=== PATIENT | female | born 1955 ===

== ENCOUNTER 2022-11-14 17:10 | Inpatient (IN) ==
[2022-11-14] MEDS ORDERED: Propofol 10 mg/ml 100 ML BTL 1,000 MG/100 ML BTL ONE (18:24)
[2022-11-14] MEDS: Propofol 10 mg/ml 100 ML BTL 1,000 MG/100 ML BTL IV SCH (19:55)
[2022-11-14 20:57] LABS: PCO2 Arterial 35 mmHg (35-45); PO2 Arterial 64 mmHg (80-100)
[2022-11-14] MEDS ORDERED: Norepinephrine IV 4 MG in NS 0.9% 250 ml 246 ML IV SCH (21:00)
[2022-11-14 21:17] LABS: Hematocrit 34 % (35-47); Hemoglobin 11.4 g/dL (12.0-16.0); Mean Corpuscular HGB Conc 34 g/dL (31-36); Mean Corpuscular Hemoglobin 33 pg (27-31); Mean Corpuscular Volume 98 fL (80-97); Mean Platelet Volume 7.8 fL (7.4-10.4); Platelet Count 294 10^3/uL (150-450); Red Blood Count 3.47 10^6 /uL (3.70-4.87); Red Cell Distribution Width 14 % (10-15); White Blood Count 17.8 10^3/uL (3.5-10.8)
[2022-11-14 21:35] LABS: INR 1.6 (0.88-1.18)
[2022-11-14] MEDS ORDERED: Piperacillin/Tazobac ADVAN 3.375 GM in NS 0.9% 100 ml BAG 100 ML IV ONE (21:38)
[2022-11-14 21:48] LABS: Albumin 2.3 g/dL (3.2-5.2); Calcium 7.3 mg/dL (8.6-10.3); Creatinine, Serum 0.36 mg/dL (0.51-0.95); Globulin 2.4 g/dL (2-4); Magnesium 1.5 mg/dL (1.9-2.7); Phosphorus 1.6 mg/dL (2.5-5.0); Potassium 4.2 mmol/L (3.5-5.0); Total Bilirubin 0.4 mg/dL (0.2-1.0); Total Protein 4.7 g/dL (6.4-8.9); eGFR CKD-EPI 110.5 (>60)
[2022-11-14] MEDS ORDERED: Sodium Phosphate IV 15 MMOL in NS 0.9% 250 ml 250 ML IV ONE (21:54)
[2022-11-14] MEDS ORDERED: Magnesium Sulf 4 GM/100 ML IV 4,000 MG/100 ML BAG IVPB ONE (21:55)
[2022-11-14 21:57] LABS: ABS Lymphocytes 0.6 10^3/ul (1.0-4.8); ABS Monocytes 0.3 10^3/ul (0-0.8); ABS Neutrophils 16.8 10^3/ul (1.5-7.7); Eosinophil % 0.1 %; Lymphocyte % 3.6 %; Nucleated Red Blood Cells % 0.1
[2022-11-14] MEDS ORDERED: Zosyn per Pharmacy NOTE FOLLOW UP SCH (22:00)
[2022-11-14 22:33] LABS: Phenytoin 7.1 mcg/mL (10-20)
[2022-11-14] MEDS ORDERED: Vancomycin 1,250 MG in NS 0.9% 250 ml 250 ML IVPB ONE (23:00)
[2022-11-14] MEDS ORDERED: Vancomycin per Pharmacy 1 EA NOTE FOLLOW UP SCH (23:00)
[2022-11-15] MEDS: Chlorhexidine MOUTHWASH 0.12% 15 ML UDC SWISH SPIT SCH ×7 (00:05→21:22)
[2022-11-15 00:46] LABS: PCO2 Arterial 36 mmHg (35-45); PO2 Arterial 259 mmHg (80-100)
[2022-11-15] MEDS: methylPREDNISolone SOD SUCC 40 mg/ml 1 ml VIAL IV SCH ×4 (01:02→22:18)
[2022-11-15] MEDS: Enoxaparin 30 MG/0.3 ML SYR SUBCUT SCH ×2 (01:02→08:15)
[2022-11-15 02:06] LABS: Urine Appearance Cloudy; Urine Bilirubin Negative (Negative); Urine Blood 3+ (Negative); Urine Color Yellow; Urine Glucose Negative (Negative); Urine Ketones 1+ (Negative); Urine Nitrite Negative (Negative); Urine Protein 2+(100 mg/dL) (Negative); Urine Specific Gravity 1.033 (1.002-1.030); Urine Urobilinogen Negative (Negative)
[2022-11-15] MEDS ORDERED: Lorazepam PYXIS KEY PRN ×2 (02:11→23:21)
[2022-11-15] MEDS ORDERED: LORazepam 2 mg VIAL 1 ml IV PUSH ONE ×2 (02:11→23:21)
[2022-11-15 02:12] LABS: Urine Bacteria Absent (Absent); Urine Red Blood Cell 3+(>10/hpf) (Absent); Urine Squamous Epithelial Cell Present (Absent); Urine White Blood Cell 2+(11-20/hpf) (Absent)
[2022-11-15] MEDS ORDERED: LORazepam 2 mg VIAL 1 ml ONE ×2 (02:13→23:26)
[2022-11-15] MEDS ORDERED: Lorazepam PYXIS KEY ONE (02:13)
[2022-11-15] MEDS: Propofol 10 mg/ml 100 ML BTL 1,000 MG/100 ML BTL IV SCH ×4 (03:05→23:36)
[2022-11-15] MEDS: ZOSYN 3.375 GM Q8H per EXTENDED INFUSION IV SCH ×3 (04:17→20:27)
[2022-11-15 06:29] LABS: Hematocrit 35 % (35-47); Hemoglobin 11.5 g/dL (12.0-16.0); Mean Corpuscular HGB Conc 33 g/dL (31-36); Mean Corpuscular Hemoglobin 33 pg (27-31); Mean Corpuscular Volume 98 fL (80-97); Platelet Count 345 10^3/uL (150-450); Red Blood Count 3.54 10^6 /uL (3.70-4.87); Red Cell Distribution Width 14 % (10-15); White Blood Count 16.8 10^3/uL (3.5-10.8)
[2022-11-15 06:53] LABS: Calcium 7.5 mg/dL (8.6-10.3); Creatinine, Serum 0.41 mg/dL (0.51-0.95); Magnesium 2.9 mg/dL (1.9-2.7); Phosphorus 2.5 mg/dL (2.5-5.0); Potassium 3.9 mmol/L (3.5-5.0); eGFR CKD-EPI 107.1 (>60)
[2022-11-15] MEDS: Metoprolol Tartrate 5 mg VIAL 5 ml VIAL (1 mg/ml) IV PRN ×2 (06:58→22:49)
[2022-11-15 07:04] LABS: ABS Basophils 0.1 10^3/ul (0-0.2); ABS Eosinophils 0.1 10^3/ul (0-0.6); ABS Lymphocytes 0.4 10^3/ul (1.0-4.8); ABS Monocytes 0.4 10^3/ul (0-0.8); ABS Neutrophils 15.8 10^3/ul (1.5-7.7); Eosinophil % 0.3 %; Lymphocyte % 2.3 %
[2022-11-15] MEDS ORDERED: Furosemide 40 mg/4 ml IV VIAL IV SLOW PU ONE (07:05)
[2022-11-15] MEDS ORDERED: Potassium Chloride LIQUID 20 MEQ/15 ML LIQUID PO ONE (07:05)
[2022-11-15] MEDS: Pantoprazole VIAL 40 MG VIAL IV SCH (08:16)
[2022-11-15 08:47] LABS: PCO2 Arterial 34 mmHg (35-45); PO2 Arterial 77 mmHg (80-100)
[2022-11-15] MEDS ORDERED: Phenytoin 100 mg ER CAP PO SCH (09:00)
[2022-11-15 10:14] LABS: Urine Appearance Cloudy; Urine Bilirubin Negative (Negative); Urine Blood 3+ (Negative); Urine Color Straw; Urine Glucose Negative (Negative); Urine Ketones Negative (Negative); Urine Nitrite Negative (Negative); Urine Protein Negative (Negative); Urine Specific Gravity 1.011 (1.002-1.030); Urine Urobilinogen Negative (Negative)
[2022-11-15 10:22] LABS: Urine Bacteria Absent (Absent); Urine Red Blood Cell 3+(>10/hpf) (Absent); Urine Squamous Epithelial Cell Present (Absent); Urine White Blood Cell Trace(0-5/hpf) (Absent)
[2022-11-15] MEDS: Vancomycin 1,250 MG in NS 0.9% 250 ml 250 ML IVPB SCH (11:20)
[2022-11-15] MEDS ORDERED: Enoxaparin 40 MG/0.4 ML SYR SUBCUT ONE (12:30)
[2022-11-15 12:59] LABS: PCO2 Arterial 35 mmHg (35-45); PO2 Arterial 73 mmHg (80-100)
[2022-11-15 13:33] LABS: Calcium 7.4 mg/dL (8.6-10.3); Creatinine, Serum 0.48 mg/dL (0.51-0.95); Potassium 4.4 mmol/L (3.5-5.0); eGFR CKD-EPI 103.1 (>60)
[2022-11-15] MEDS ORDERED: fentaNYL 100 mcg/2 ml 50 MCG/ML VIAL IV SLOW PU ONE (13:36)
[2022-11-15] MEDS ORDERED: Furosemide 40 mg/4 ml IV VIAL IV ONE (14:37)
[2022-11-15] MEDS ORDERED: fentaNYL 100 mcg/2 ml 50 MCG/ML VIAL IV SLOW PU PRN (18:00)
[2022-11-15] MEDS: Enoxaparin 80 MG/0.8 ML SYR SUBCUT SCH (21:21)
[2022-11-15] MEDS: PHENobarbital LIQ 30 MG/7.5 ML UDC G TUBE SCH (21:22)
[2022-11-15] MEDS: fentaNYL 100 mcg/2 ml 50 MCG/ML VIAL IV SLOW PU PRN (23:45)
[2022-11-16] MEDS: Acetaminophen IV 1 GM/100ML 1,000 MG/100 ML BAG IV PRN ×2 (00:08→15:29)
[2022-11-16] MEDS ORDERED: Lactated Ringers 1000 ml BAG 500 ML IV ONE (00:50)
[2022-11-16] MEDS ORDERED: Norepinephrine IV 4 MG in NS 0.9% 250 ml 246 ML IV SCH (01:30)
[2022-11-16] MEDS: Vancomycin 1,250 MG in NS 0.9% 250 ml 250 ML IVPB SCH ×2 (01:33→13:15)
[2022-11-16] MEDS ORDERED: Norepinephrine 16MCG/ML BAGD5W 4,000 MCG/250 ML BAG IV SCH (02:00)
[2022-11-16] MEDS: Chlorhexidine MOUTHWASH 0.12% 15 ML UDC SWISH SPIT SCH ×3 (04:10→08:14)
[2022-11-16] MEDS: ZOSYN 3.375 GM Q8H per EXTENDED INFUSION IV SCH ×3 (04:13→20:21)
[2022-11-16 05:05] LABS: Red Blood Count 3.09 10^6 /uL (3.70-4.87)
[2022-11-16 05:08] LABS: Hematocrit 30 % (35-47); Hemoglobin 10.6 g/dL (12.0-16.0); Mean Corpuscular HGB Conc 35 g/dL (31-36); Mean Corpuscular Hemoglobin 35 pg (27-31); Mean Corpuscular Volume 99 fL (80-97); Mean Platelet Volume 7.9 fL (7.4-10.4); Platelet Count 368 10^3/uL (150-450); Red Cell Distribution Width 14 % (10-15); White Blood Count 16.6 10^3/uL (3.5-10.8)
[2022-11-16 05:37] LABS: CO2 Carbon Dioxide 31 mmol/L (22-32); Chloride 97 mmol/L (101-111); Magnesium 1.9 mg/dL (1.9-2.7); Sodium 132 mmol/L (135-145)
[2022-11-16 05:43] LABS: Blood Urea Nitrogen 14 mg/dL (6-24); Creatinine, Serum 0.47 mg/dL (0.51-0.95); Glucose 139 mg/dL (70-100); Phenytoin 6.4 mcg/mL (10-20); eGFR CKD-EPI 103.6 (>60)
[2022-11-16 05:44] LABS: Anion Gap 4 mmol/L (2-11)
[2022-11-16] MEDS: Propofol 10 mg/ml 100 ML BTL 1,000 MG/100 ML BTL IV SCH ×5 (06:01→21:39)
[2022-11-16 06:03] LABS: RBC Morphology Normal (Normal)
[2022-11-16 06:04] LABS: Anisocytosis 1+
[2022-11-16 06:05] LABS: ABS Basophils 0.1 10^3/ul (0-0.2); ABS Eosinophils 0.1 10^3/ul (0-0.6); ABS Lymphocytes 0.6 10^3/ul (1.0-4.8); ABS Monocytes 0.3 10^3/ul (0-0.8); ABS Neutrophils 15.8 10^3/ul (1.5-7.7); Eosinophil % 0.9 %; Lymphocyte % 3.4 %; Nucleated Red Blood Cells % 0.2
[2022-11-16 06:12] LABS: Potassium, Whole Blood 3.5 mmol/L (3.4-4.5)
[2022-11-16] MEDS: methylPREDNISolone SOD SUCC 40 mg/ml 1 ml VIAL IV SCH ×3 (06:40→22:51)
[2022-11-16] MEDS: KCL 20 MEQ/100 ML IVPREMIX 20 MEQ/100 ML BAG IV SCH ×2 (07:50→10:03)
[2022-11-16] MEDS: PHENobarbital LIQ 30 MG/7.5 ML UDC G TUBE SCH ×2 (08:02→20:21)
[2022-11-16] MEDS: Pantoprazole VIAL 40 MG VIAL IV SCH (08:02)
[2022-11-16] MEDS: Enoxaparin 80 MG/0.8 ML SYR SUBCUT SCH ×2 (08:02→20:25)
[2022-11-16] MEDS ORDERED: Phenytoin SUSP 100 MG/4 ML UDC (100 MG) PO SCH ×2 (09:00→21:00)
[2022-11-16] MEDS: fentaNYL 100 mcg/2 ml 50 MCG/ML VIAL IV SLOW PU PRN ×2 (10:36→14:27)
[2022-11-16] MEDS ORDERED: Vancomycin Trough Check NOTE FOLLOW UP ONE (11:30)
[2022-11-16] MEDS: Chlorhexidine MOUTHWASH 0.12% 15 ML UDC TOPICAL SCH ×3 (12:37→20:29)
[2022-11-16] MEDS: Bacitracin OINTMENT TUBE TOPICAL SCH ×2 (12:38→20:29)
[2022-11-16] MEDS ORDERED: Furosemide 40 mg/4 ml IV VIAL IV SLOW PU ONE (13:42)
[2022-11-16] MEDS: Phenytoin SUSP 100 MG/4 ML UDC (100 MG) PO SCH ×2 (13:56→20:21)
[2022-11-16] MEDS ORDERED: fentaNYL 100 mcg/2 ml 50 MCG/ML VIAL IV SLOW PU PRN (15:36)
[2022-11-16] MEDS ORDERED: Lorazepam PYXIS KEY PRN (17:48)
[2022-11-17] MEDS: Chlorhexidine MOUTHWASH 0.12% 15 ML UDC TOPICAL SCH ×6 (00:13→19:43)
[2022-11-17] MEDS: Propofol 10 mg/ml 100 ML BTL 1,000 MG/100 ML BTL IV SCH ×4 (02:08→22:19)
[2022-11-17] MEDS: ZOSYN 3.375 GM Q8H per EXTENDED INFUSION IV SCH ×3 (03:52→19:43)
[2022-11-17] MEDS: Norepinephrine 16MCG/ML BAGD5W 4,000 MCG/250 ML BAG IV SCH (04:57)
[2022-11-17 05:06] LABS: ABS Eosinophils 0.3 10^3/ul (0-0.6); ABS Lymphocytes 0.3 10^3/ul (1.0-4.8); ABS Monocytes 0.1 10^3/ul (0-0.8); ABS Neutrophils 14.3 10^3/ul (1.5-7.7); Eosinophil % 1.7 %; Hematocrit 30 % (35-47); Hemoglobin 9.9 g/dL (12.0-16.0); Lymphocyte % 1.7 %; Mean Corpuscular HGB Conc 33 g/dL (31-36); Mean Corpuscular Hemoglobin 33 pg (27-31); Mean Corpuscular Volume 99 fL (80-97); Mean Platelet Volume 7.8 fL (7.4-10.4); Platelet Count 281 10^3/uL (150-450); Red Blood Count 3.03 10^6 /uL (3.70-4.87); Red Cell Distribution Width 14 % (10-15)
[2022-11-17 05:54] LABS: Albumin 2.2 g/dL (3.2-5.2); Albumin/Globulin Ratio 0.8 (1-3); Calcium 7.4 mg/dL (8.6-10.3); Creatinine, Serum 0.41 mg/dL (0.51-0.95); Globulin 2.6 g/dL (2-4); Magnesium 1.9 mg/dL (1.9-2.7); Potassium 4.3 mmol/L (3.5-5.0); Total Bilirubin 0.4 mg/dL (0.2-1.0); Total Protein 4.8 g/dL (6.4-8.9); Vancomycin Random 18.3 mcg/mL; eGFR CKD-EPI 107.1 (>60)
[2022-11-17] MEDS ORDERED: Vancomycin Random Level NOTE FOLLOW UP ONE (06:00)
[2022-11-17] MEDS: methylPREDNISolone SOD SUCC 40 mg/ml 1 ml VIAL IV SCH ×3 (06:16→20:44)
[2022-11-17] MEDS: Phenytoin SUSP 100 MG/4 ML UDC (100 MG) PO SCH ×3 (07:59→22:18)
[2022-11-17] MEDS: Pantoprazole VIAL 40 MG VIAL IV SCH (08:00)
[2022-11-17] MEDS: PHENobarbital LIQ 30 MG/7.5 ML UDC G TUBE SCH ×2 (08:00→22:18)
[2022-11-17] MEDS: Enoxaparin 80 MG/0.8 ML SYR SUBCUT SCH ×2 (08:00→19:43)
[2022-11-17] MEDS: Bacitracin OINTMENT TUBE TOPICAL SCH ×3 (08:01→19:43)
[2022-11-17] MEDS: fentaNYL INFUSION 50 mcg/mL VL 2,500 MCG/50 ML VIAL IV SCH (08:33)
[2022-11-17] MEDS: Vancomycin 1,500 MG in NS 0.9% 250 ml 250 ML IVPB SCH (16:44)
[2022-11-18] MEDS: LORazepam 2 mg VIAL 1 ml IV PUSH PRN ×4 (01:06→23:19)
[2022-11-18] MEDS: Chlorhexidine MOUTHWASH 0.12% 15 ML UDC TOPICAL SCH ×7 (02:29→23:23)
[2022-11-18] MEDS: Propofol 10 mg/ml 100 ML BTL 1,000 MG/100 ML BTL IV SCH ×3 (03:28→19:33)
[2022-11-18 04:25] LABS: ABS Eosinophils 0.2 10^3/ul (0-0.6); ABS Lymphocytes 0.3 10^3/ul (1.0-4.8); ABS Monocytes 0.3 10^3/ul (0-0.8); ABS Neutrophils 17.7 10^3/ul (1.5-7.7); Hematocrit 28 % (35-47); Hemoglobin 9.2 g/dL (12.0-16.0); Lymphocyte % 1.7 %; Mean Corpuscular HGB Conc 33 g/dL (31-36); Mean Corpuscular Hemoglobin 32 pg (27-31); Mean Corpuscular Volume 99 fL (80-97); Mean Platelet Volume 7.9 fL (7.4-10.4); Platelet Count 277 10^3/uL (150-450); Red Blood Count 2.83 10^6 /uL (3.70-4.87); Red Cell Distribution Width 14 % (10-15); White Blood Count 18.5 10^3/uL (3.5-10.8)
[2022-11-18] MEDS: ZOSYN 3.375 GM Q8H per EXTENDED INFUSION IV SCH ×3 (04:52→20:35)
[2022-11-18] MEDS: methylPREDNISolone SOD SUCC 40 mg/ml 1 ml VIAL IV SCH ×3 (04:53→20:37)
[2022-11-18 05:12] LABS: Calcium 7.6 mg/dL (8.6-10.3); Creatinine, Serum 0.42 mg/dL (0.51-0.95); Phenytoin 8.1 mcg/mL (10-20); Potassium 4.4 mmol/L (3.5-5.0); eGFR CKD-EPI 106.5 (>60)
[2022-11-18] MEDS ORDERED: Furosemide 40 mg/4 ml IV VIAL IV SLOW PU ONE (06:48)
[2022-11-18] MEDS: Enoxaparin 80 MG/0.8 ML SYR SUBCUT SCH ×2 (08:49→20:36)
[2022-11-18] MEDS: Bacitracin OINTMENT TUBE TOPICAL SCH ×3 (08:49→20:36)
[2022-11-18] MEDS: Pantoprazole VIAL 40 MG VIAL IV SCH (08:49)
[2022-11-18] MEDS: PHENobarbital LIQ 30 MG/7.5 ML UDC G TUBE SCH ×2 (09:50→20:35)
[2022-11-18] MEDS: Phenytoin SUSP 100 MG/4 ML UDC (100 MG) PO SCH ×3 (09:50→20:36)
[2022-11-18] MEDS ORDERED: Acetylcysteine INHALATION SOL 200 MG/ML NEB.SOLN 10 ML INH ONE (11:51)
[2022-11-18] MEDS ORDERED: Acetylcysteine ORAL SOL 200 mg/ml 30 ml VIAL ONE (11:56)
[2022-11-18] MEDS ORDERED: Albuterol/Ipratropium NEB.SOL (2.5/0.5 MG) 3 ML NEB.SOLN INH ONE (12:56)
[2022-11-18] MEDS ORDERED: Albuterol/Ipratropium NEB.SOL (2.5/0.5 MG) 3 ML NEB.SOLN ONE (13:15)
[2022-11-18] MEDS ORDERED: Albuterol/Ipratropium NEB.SOL (2.5/0.5 MG) 3 ML NEB.SOLN INH PRN (14:07)
[2022-11-18] MEDS: Vancomycin 1,500 MG in NS 0.9% 250 ml 250 ML IVPB SCH (16:48)
[2022-11-18] MEDS: fentaNYL INFUSION 50 mcg/mL VL 2,500 MCG/50 ML VIAL IV SCH (19:12)
[2022-11-19] MEDS: Propofol 10 mg/ml 100 ML BTL 1,000 MG/100 ML BTL IV SCH ×6 (00:34→17:53)
[2022-11-19] MEDS: Acetaminophen IV 1 GM/100ML 1,000 MG/100 ML BAG IV PRN ×2 (00:34→16:45)
[2022-11-19] MEDS: Norepinephrine 16MCG/ML BAGD5W 4,000 MCG/250 ML BAG IV SCH ×2 (02:10→22:31)
[2022-11-19] MEDS: Chlorhexidine MOUTHWASH 0.12% 15 ML UDC TOPICAL SCH ×5 (03:25→21:39)
[2022-11-19] MEDS: ZOSYN 3.375 GM Q8H per EXTENDED INFUSION IV SCH ×3 (03:26→21:43)
[2022-11-19 04:30] LABS: Hematocrit 29 % (35-47); Hemoglobin 9.3 g/dL (12.0-16.0); Mean Corpuscular HGB Conc 33 g/dL (31-36); Mean Corpuscular Hemoglobin 32 pg (27-31); Mean Corpuscular Volume 99 fL (80-97); Mean Platelet Volume 7.9 fL (7.4-10.4); Platelet Count 354 10^3/uL (150-450); Red Blood Count 2.89 10^6 /uL (3.70-4.87); Red Cell Distribution Width 14 % (10-15); White Blood Count 19.4 10^3/uL (3.5-10.8)
[2022-11-19 04:46] LABS: Calcium 7.7 mg/dL (8.6-10.3); Creatinine, Serum 0.51 mg/dL (0.51-0.95); Potassium 4.1 mmol/L (3.5-5.0); eGFR CKD-EPI 101.6 (>60)
[2022-11-19 05:03] LABS: ABS Eosinophils 0.3 10^3/ul (0-0.6); ABS Lymphocytes 0.6 10^3/ul (1.0-4.8); ABS Monocytes 0.4 10^3/ul (0-0.8); ABS Neutrophils 18.2 10^3/ul (1.5-7.7); Eosinophil % 1.6 %; Lymphocyte % 2.9 %
[2022-11-19] MEDS: methylPREDNISolone SOD SUCC 40 mg/ml 1 ml VIAL IV SCH ×3 (05:32→21:41)
[2022-11-19] MEDS: LORazepam 2 mg VIAL 1 ml IV PUSH PRN (07:01)
[2022-11-19] MEDS: Pantoprazole VIAL 40 MG VIAL IV SCH (08:43)
[2022-11-19] MEDS: Enoxaparin 80 MG/0.8 ML SYR SUBCUT SCH ×2 (08:43→21:39)
[2022-11-19] MEDS: Bacitracin OINTMENT TUBE TOPICAL SCH ×3 (08:44→21:38)
[2022-11-19] MEDS ORDERED: Midazolam 10 mg/10 ml VIAL 1 mg/ml 10 ml VIAL (10 mg) ONE (09:34)
[2022-11-19] MEDS ORDERED: Midazolam 2 mg/2 ml VIAL 1 mg/ml 2 ml VIAL (2 mg) IV SLOW PU ONE (09:40)
[2022-11-19] MEDS ORDERED: Furosemide 40 mg/4 ml IV VIAL ONE (09:40)
[2022-11-19] MEDS ORDERED: Acetylcysteine INHALATION SOL 200 MG/ML NEB.SOLN 10 ML INH ONE (09:43)
[2022-11-19] MEDS: Furosemide 40 mg/4 ml IV VIAL IV SLOW PU SCH (09:46)
[2022-11-19] MEDS: PHENobarbital LIQ 30 MG/7.5 ML UDC G TUBE SCH ×2 (10:31→21:40)
[2022-11-19] MEDS: Phenytoin SUSP 100 MG/4 ML UDC (100 MG) PO SCH ×3 (10:32→21:43)
[2022-11-19 11:53] LABS: Albumin 2.3 g/dL (3.2-5.2)
[2022-11-19 12:19] LABS: Folate 13.72 ng/mL (5.90-24.80)
[2022-11-19] MEDS: Midazolam 50 MG PREMIX IV DRIP 50 ML IV SCH (12:25)
[2022-11-19] MEDS ORDERED: Vancomycin Trough Check NOTE FOLLOW UP ONE (15:30)
[2022-11-19] MEDS: Vancomycin 1,500 MG in NS 0.9% 250 ml 250 ML IVPB SCH (16:26)
[2022-11-19 22:36] VITALS: BP 118/64
[2022-11-20] MEDS: Chlorhexidine MOUTHWASH 0.12% 15 ML UDC TOPICAL SCH ×6 (00:33→19:08)
[2022-11-20] MEDS: Propofol 10 mg/ml 100 ML BTL 1,000 MG/100 ML BTL IV SCH ×5 (01:55→22:20)
[2022-11-20] MEDS: Acetaminophen IV 1 GM/100ML 1,000 MG/100 ML BAG IV PRN (04:08)
[2022-11-20 04:25] LABS: ABS Basophils 0.1 10^3/ul (0-0.2); ABS Eosinophils 0.2 10^3/ul (0-0.6); ABS Lymphocytes 0.2 10^3/ul (1.0-4.8); ABS Monocytes 0.2 10^3/ul (0-0.8); ABS Neutrophils 14.4 10^3/ul (1.5-7.7); Eosinophil % 1.5 %; Hematocrit 28 % (35-47); Hemoglobin 9.5 g/dL (12.0-16.0); Lymphocyte % 1.6 %; Mean Corpuscular HGB Conc 34 g/dL (31-36); Mean Corpuscular Hemoglobin 32 pg (27-31); Mean Corpuscular Volume 97 fL (80-97); Mean Platelet Volume 7.7 fL (7.4-10.4); PCO2 Arterial 48 mmHg (35-45); PO2 Arterial 77 mmHg (80-100); Platelet Count 319 10^3/uL (150-450); Red Blood Count 2.93 10^6 /uL (3.70-4.87); Red Cell Distribution Width 14 % (10-15); White Blood Count 15.1 10^3/uL (3.5-10.8)
[2022-11-20] MEDS: LORazepam 2 mg VIAL 1 ml IV PUSH PRN (04:25)
[2022-11-20] MEDS: ZOSYN 3.375 GM Q8H per EXTENDED INFUSION IV SCH ×3 (04:44→19:10)
[2022-11-20] MEDS: Midazolam 50 MG PREMIX IV DRIP 50 ML IV SCH ×2 (04:48→19:26)
[2022-11-20 04:51] LABS: Calcium 7.8 mg/dL (8.6-10.3); Creatinine, Serum 0.43 mg/dL (0.51-0.95); Potassium 4.2 mmol/L (3.5-5.0); eGFR CKD-EPI 105.9 (>60)
[2022-11-20] MEDS ORDERED: Rocuronium 50 mg VIAL 10 mg/ml 5 ml VIAL (50 mg) IV ONE ×2 (04:55→15:53)
[2022-11-20] MEDS: methylPREDNISolone SOD SUCC 40 mg/ml 1 ml VIAL IV SCH ×2 (06:11→17:27)
[2022-11-20] MEDS: Enoxaparin 80 MG/0.8 ML SYR SUBCUT SCH ×2 (08:42→19:08)
[2022-11-20] MEDS: Furosemide 40 mg/4 ml IV VIAL IV SLOW PU SCH (08:42)
[2022-11-20] MEDS: Pantoprazole VIAL 40 MG VIAL IV SCH (08:42)
[2022-11-20] MEDS: PHENobarbital LIQ 30 MG/7.5 ML UDC G TUBE SCH ×2 (08:42→19:08)
[2022-11-20] MEDS: Phenytoin SUSP 100 MG/4 ML UDC (100 MG) PO SCH ×3 (08:43→19:08)
[2022-11-20] MEDS: Bacitracin OINTMENT TUBE TOPICAL SCH ×3 (08:44→19:09)
[2022-11-20 09:05] LABS: Urine Appearance Turbid; Urine Bilirubin Negative (Negative); Urine Blood 2+ (Negative); Urine Glucose Negative (Negative); Urine Ketones Negative (Negative); Urine Nitrite Negative (Negative); Urine Protein 2+(100 mg/dL) (Negative); Urine Specific Gravity 1.029 (1.002-1.030); Urine Urobilinogen Negative (Negative)
[2022-11-20 09:06] LABS: Urine Bacteria Absent (Absent); Urine Red Blood Cell 3+(>10/hpf) (Absent); Urine White Blood Cell Absent (Absent)
[2022-11-20 09:07] LABS: Urine Color Red
[2022-11-20] MEDS: fentaNYL INFUSION 50 mcg/mL VL 2,500 MCG/50 ML VIAL IV SCH (09:19)
[2022-11-20 10:18] LABS: HDL Cholesterol 40.7 mg/dL
[2022-11-20 10:37] LABS: Thyroglobulin Antibody II 9.6 IU/mL (<4.0)
[2022-11-20 10:38] LABS: Activated Partial Thrombo Time 37.2 seconds (26.0-38.0); INR 1.21 (0.88-1.18)
[2022-11-20] MEDS ORDERED: NS 0.9% 500 ml BAG 500 ML IV ONE (12:10)
[2022-11-20] MEDS: Fluconazole 400 MG IVPREMIX 400 MG/200 ML BAG IVPB SCH (13:28)
[2022-11-20] MEDS ORDERED: Sulfur Hexaflouride MICROSPHR 25 MG VIAL ONE (13:33)
[2022-11-20 13:35] LABS: Albumin 2.5 g/dL (3.2-5.2); Albumin/Globulin Ratio 0.8 (1-3); Direct Bilirubin 0.2 mg/dL (0.03-0.18); Globulin 3.2 g/dL (2-4); Indirect Bilirubin 0.3 mg/dL (0.3-1.0); Total Bilirubin 0.5 mg/dL (0.2-1.0); Total Protein 5.7 g/dL (6.4-8.9)
[2022-11-20 15:21] LABS: PCO2 Arterial 53 mmHg (35-45); PO2 Arterial 81 mmHg (80-100)
[2022-11-20] MEDS ORDERED: Artificial Tear OPHTH.OINT 3.5 GM BOTH EYES PRN (15:31)
[2022-11-20] MEDS ORDERED: Cisatracurium 100 MG in NS 0.9% 250 ml 200 ML IV SCH (15:45)
[2022-11-20] MEDS ORDERED: Cisatracurium 2 MG/ML MDV 5 ML IV ONE (15:45)
[2022-11-20] MEDS ORDERED: Rocuronium 50 mg VIAL 10 mg/ml 5 ml VIAL (50 mg) ONE (16:04)
[2022-11-20 16:51] LABS: Free Phenytoin Level 2.4 mcg/mL (1.0 - 2.0)
[2022-11-20 17:42] LABS: PCO2 Arterial 52 mmHg (35-45); PO2 Arterial 126 mmHg (80-100)
[2022-11-21] MEDS: Chlorhexidine MOUTHWASH 0.12% 15 ML UDC TOPICAL SCH ×6 (00:50→20:04)
[2022-11-21] MEDS: ZOSYN 3.375 GM Q8H per EXTENDED INFUSION IV SCH ×3 (03:05→20:02)
[2022-11-21] MEDS: Propofol 10 mg/ml 100 ML BTL 1,000 MG/100 ML BTL IV SCH ×5 (04:03→19:57)
[2022-11-21 04:29] LABS: ABS Eosinophils 0.2 10^3/ul (0-0.6); ABS Lymphocytes 0.2 10^3/ul (1.0-4.8); ABS Monocytes 0.1 10^3/ul (0-0.8); ABS Neutrophils 13.7 10^3/ul (1.5-7.7); Eosinophil % 1.1 %; Hematocrit 27 % (35-47); Lymphocyte % 1.7 %; Mean Corpuscular HGB Conc 33 g/dL (31-36); Mean Corpuscular Hemoglobin 33 pg (27-31); Mean Corpuscular Volume 98 fL (80-97); Mean Platelet Volume 8.1 fL (7.4-10.4); Nucleated Red Blood Cells % 0.1; Platelet Count 299 10^3/uL (150-450); Red Blood Count 2.75 10^6 /uL (3.70-4.87); Red Cell Distribution Width 14 % (10-15); White Blood Count 14.2 10^3/uL (3.5-10.8)
[2022-11-21] MEDS ORDERED: Cisatracurium 100 MG in NS 0.9% 250 ml 200 ML IV SCH (05:00)
[2022-11-21] MEDS ORDERED: fentaNYL INFUSION 50 mcg/mL VL 2,500 MCG/50 ML VIAL IV SCH (05:01)
[2022-11-21 05:07] LABS: Albumin 2.1 g/dL (3.2-5.2); Albumin/Globulin Ratio 0.7 (1-3); Calcium 7.6 mg/dL (8.6-10.3); Creatinine, Serum 0.44 mg/dL (0.51-0.95); Globulin 3.1 g/dL (2-4); Magnesium 1.8 mg/dL (1.9-2.7); Phenytoin 8.7 mcg/mL (10-20); Phosphorus 2.9 mg/dL (2.5-5.0); Potassium 3.7 mmol/L (3.5-5.0); Total Bilirubin 0.6 mg/dL (0.2-1.0); Total Protein 5.2 g/dL (6.4-8.9); eGFR CKD-EPI 105.3 (>60)
[2022-11-21 05:21] LABS: TSH Ultra Thyroid Stim Horm 0.32 mcIU/mL (0.34-5.60)
[2022-11-21] MEDS: Midazolam 50 MG PREMIX IV DRIP 50 ML IV SCH ×2 (06:00→08:04)
[2022-11-21] MEDS: methylPREDNISolone SOD SUCC 40 mg/ml 1 ml VIAL IV SCH ×2 (07:19→18:19)
[2022-11-21 07:53] LABS: PCO2 Arterial 41 mmHg (35-45); PO2 Arterial 86 mmHg (80-100)
[2022-11-21] MEDS ORDERED: Magnesium Sulfate 2 gm BAG 2 GM/50 ML BAG IVPB ONE (08:00)
[2022-11-21] MEDS: Pantoprazole VIAL 40 MG VIAL IV SCH (08:13)
[2022-11-21] MEDS: Enoxaparin 80 MG/0.8 ML SYR SUBCUT SCH ×2 (08:13→20:04)
[2022-11-21] MEDS: Artificial Tear OPHTH.OINT 3.5 GM BOTH EYES PRN (08:57)
[2022-11-21] MEDS: Bacitracin OINTMENT TUBE TOPICAL SCH ×3 (08:57→20:05)
[2022-11-21] MEDS: PHENobarbital LIQ 30 MG/7.5 ML UDC G TUBE SCH ×2 (09:16→22:58)
[2022-11-21] MEDS: Phenytoin SUSP 100 MG/4 ML UDC (100 MG) PO SCH ×3 (09:16→20:05)
[2022-11-21] MEDS: Norepinephrine 16MCG/ML BAGD5W 4,000 MCG/250 ML BAG IV SCH (09:44)
[2022-11-21] MEDS ORDERED: Midazolam 50 MG PREMIX IV DRIP 50 ML IV SCH (10:09)
[2022-11-21] MEDS: fentaNYL INFUSION 50 mcg/mL VL 2,500 MCG/50 ML VIAL IV SCH (12:25)
[2022-11-21] MEDS: Fluconazole 400 MG IVPREMIX 400 MG/200 ML BAG IVPB SCH (13:32)
[2022-11-21 16:53] LABS: Fungitell Qualitative Result Negative (Negative); Fungitell Quantitative Value <31 pg/mL (<60 pg/mL)
[2022-11-22] MEDS: Chlorhexidine MOUTHWASH 0.12% 15 ML UDC TOPICAL SCH ×6 (00:56→19:02)
[2022-11-22] MEDS: Acetaminophen IV 1 GM/100ML 1,000 MG/100 ML BAG IV PRN (02:31)
[2022-11-22] MEDS: ZOSYN 3.375 GM Q8H per EXTENDED INFUSION IV SCH ×3 (03:37→19:00)
[2022-11-22] MEDS: methylPREDNISolone SOD SUCC 40 mg/ml 1 ml VIAL IV SCH (06:34)
[2022-11-22] MEDS: Propofol 10 mg/ml 100 ML BTL 1,000 MG/100 ML BTL IV SCH ×3 (06:36→18:17)
[2022-11-22 07:32] LABS: Hematocrit 29 % (35-47); Hemoglobin 9.5 g/dL (12.0-16.0); Mean Corpuscular HGB Conc 33 g/dL (31-36); Mean Corpuscular Hemoglobin 32 pg (27-31); Mean Corpuscular Volume 98 fL (80-97); Mean Platelet Volume 8.6 fL (7.4-10.4); Platelet Count 384 10^3/uL (150-450); Red Blood Count 2.96 10^6 /uL (3.70-4.87); Red Cell Distribution Width 14 % (10-15); White Blood Count 16.8 10^3/uL (3.5-10.8)
[2022-11-22 08:28] LABS: Albumin 2.3 g/dL (3.2-5.2); Creatinine, Serum 0.65 mg/dL (0.51-0.95); Magnesium 2.5 mg/dL (1.9-2.7); Phosphorus 3.9 mg/dL (2.5-5.0); Potassium 4.1 mmol/L (3.5-5.0); eGFR CKD-EPI 95.8 (>60)
[2022-11-22 08:29] LABS: Albumin/Globulin Ratio 0.6 (1-3); Globulin 3.7 g/dL (2-4); Phenytoin 9.9 mcg/mL (10-20); Total Bilirubin 0.7 mg/dL (0.2-1.0)
[2022-11-22 08:52] LABS: ABS Lymphocytes 0.1 10^3/ul (1.0-4.8); ABS Monocytes 0.1 10^3/ul (0-0.8); ABS Neutrophils 16.5 10^3/ul (1.5-7.7); Eosinophil % 0.2 %; Lymphocyte % 0.9 %
[2022-11-22] MEDS: Bacitracin OINTMENT TUBE TOPICAL SCH ×3 (09:20→20:55)
[2022-11-22] MEDS: Pantoprazole VIAL 40 MG VIAL IV SCH (09:20)
[2022-11-22] MEDS: Phenytoin SUSP 100 MG/4 ML UDC (100 MG) PO SCH ×3 (09:20→20:57)
[2022-11-22] MEDS: Enoxaparin 80 MG/0.8 ML SYR SUBCUT SCH ×2 (09:20→20:55)
[2022-11-22] MEDS: PHENobarbital LIQ 30 MG/7.5 ML UDC G TUBE SCH ×2 (09:22→20:57)
[2022-11-22] MEDS ORDERED: NS 0.9% 500 ml BAG 500 ML IV ONE ×2 (09:49→15:56)
[2022-11-22] MEDS: Fluconazole 400 MG IVPREMIX 400 MG/200 ML BAG IVPB SCH (12:19)
[2022-11-22 13:28] LABS: C Reactive Protein 412.67 mg/L (<8.01)
[2022-11-22 14:15] LABS: Free T3 2.9 pg/mL (2.5-3.9)
[2022-11-22 14:16] LABS: Free T4 0.73 ng/dL (0.61-1.12)
[2022-11-22 15:20] LABS: Aspergillus (Galactomannan) Ag <0.500 index (<0.5)
[2022-11-22] MEDS: fentaNYL INFUSION 50 mcg/mL VL 2,500 MCG/50 ML VIAL IV SCH (17:16)
[2022-11-23] MEDS: Chlorhexidine MOUTHWASH 0.12% 15 ML UDC TOPICAL SCH ×4 (00:15→12:46)
[2022-11-23] MEDS: Propofol 10 mg/ml 100 ML BTL 1,000 MG/100 ML BTL IV SCH ×2 (02:02→06:39)
[2022-11-23] MEDS: ZOSYN 3.375 GM Q8H per EXTENDED INFUSION IV SCH ×2 (03:45→12:46)
[2022-11-23 04:27] LABS: ABS Eosinophils 0.4 10^3/ul (0-0.6); ABS Lymphocytes 0.3 10^3/ul (1.0-4.8); ABS Monocytes 0.1 10^3/ul (0-0.8); Eosinophil % 2.5 %; Hematocrit 31 % (35-47); Hemoglobin 9.9 g/dL (12.0-16.0); Lymphocyte % 1.8 %; Mean Corpuscular HGB Conc 32 g/dL (31-36); Mean Corpuscular Hemoglobin 32 pg (27-31); Mean Corpuscular Volume 100 fL (80-97); Mean Platelet Volume 8.5 fL (7.4-10.4); Platelet Count 422 10^3/uL (150-450); Red Blood Count 3.07 10^6 /uL (3.70-4.87); Red Cell Distribution Width 14 % (10-15); White Blood Count 17.9 10^3/uL (3.5-10.8)
[2022-11-23 05:11] LABS: Albumin 2.3 g/dL (3.2-5.2); Albumin/Globulin Ratio 0.7 (1-3); Calcium 8.1 mg/dL (8.6-10.3); Creatinine, Serum 0.48 mg/dL (0.51-0.95); Globulin 3.5 g/dL (2-4); Magnesium 2.2 mg/dL (1.9-2.7); Phosphorus 2.8 mg/dL (2.5-5.0); Potassium 3.7 mmol/L (3.5-5.0); Total Bilirubin 0.7 mg/dL (0.2-1.0); Total Protein 5.8 g/dL (6.4-8.9); eGFR CKD-EPI 103.1 (>60)
[2022-11-23] MEDS ORDERED: fentaNYL 100 mcg/2 ml 50 MCG/ML VIAL IV SLOW PU ONE (07:04)
[2022-11-23] MEDS: LORazepam 2 mg VIAL 1 ml IV PUSH PRN (07:07)
[2022-11-23] MEDS ORDERED: Furosemide 40 mg/4 ml IV VIAL IV ONE (07:40)
[2022-11-23] MEDS: Pantoprazole VIAL 40 MG VIAL IV SCH (08:05)
[2022-11-23] MEDS: Enoxaparin 80 MG/0.8 ML SYR SUBCUT SCH (08:06)
[2022-11-23] MEDS: Bacitracin OINTMENT TUBE TOPICAL SCH ×2 (08:14→14:32)
[2022-11-23] MEDS ORDERED: Midazolam 5 mg/5 ml VIAL 1 mg/ml 5 ml VIAL (5 mg) IV SLOW PU ONE (08:14)
[2022-11-23] MEDS ORDERED: Rocuronium 50 mg VIAL 10 mg/ml 5 ml VIAL (50 mg) IV ONE (08:15)
[2022-11-23] MEDS: Artificial Tear OPHTH.OINT 3.5 GM BOTH EYES PRN (08:16)
[2022-11-23] MEDS ORDERED: methylPREDNISolone SOD SUCC 40 mg/ml 1 ml VIAL IV SCH (09:00)
[2022-11-23] MEDS: Phenytoin SUSP 100 MG/4 ML UDC (100 MG) PO SCH ×2 (09:29→14:33)
[2022-11-23] MEDS: PHENobarbital LIQ 30 MG/7.5 ML UDC G TUBE SCH (09:29)
[2022-11-23] MEDS ORDERED: Lorazepam PYXIS KEY PRN (12:56)
[2022-11-23] MEDS ORDERED: LORazepam 2 mg VIAL 1 ml IV PUSH ONE (12:57)
[2022-11-23] MEDS ORDERED: Ondansetron 4 mg VIAL 2 MG/ML 2 ml VIAL IV PRN (12:57)
[2022-11-23] MEDS ORDERED: Atropine 1% (ORAL/SL) 15 ML BTL SL PRN (12:57)
[2022-11-23] MEDS ORDERED: LORazepam 2 mg VIAL 1 ml IV PUSH PRN (12:57)
[2022-11-23] MEDS ORDERED: Morphine 4 MG/ML VIAL (1 ml) ONE (13:01)
[2022-11-23] MEDS: Fluconazole 400 MG IVPREMIX 400 MG/200 ML BAG IVPB SCH (13:38)
== END 2022-11-23 13:49 | disposition expired | DRG 207 ==
LOC: ICU 19:50 → SUATTDRO 19:50
PROVIDERS: ADMIT Internal Medicine; ATTEND Internal Medicine